=== PATIENT | male | born 1995 | race Caucasian/White ===

== ENCOUNTER 2024-10-16 21:02 | Emergency (ER) | payer OTHER, SELFPAY ==
[2024-10-16 21:08] VITALS: BP 146/79
[2024-10-16 23:35] VITALS: BMI 35.5
[2024-10-16 23:37] VITALS: BP 139/79
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
[2024-10-17 02:28] VITALS: BP 128/74
== END 2024-10-17 02:29 | disposition home or self-care (01) ==
LOC: EMR 21:02
PROVIDERS: EMERGENCY PHYSICIAN Emergency Medicine
DX: S43.102A Unspecified dislocation of left acromioclavicular joint, initial encounter (principal); S92.251A Displaced fracture of navicular [scaphoid] of right foot, initial encounter for closed fracture; V86.59XA Driver of other special all-terrain or other off-road motor vehicle injured in nontraffic accident, initial encounter; R03.0 Elevated blood-pressure reading, without diagnosis of hypertension
CPT/HCPCS: 99283; 73030; 73610; 73630